=== PATIENT | male | born 1935 | race Caucasian/White ===

== ENCOUNTER 2021-06-23 08:19 | Outpatient (CLI) | payer MEDICARE ==
[2021-06-23] MEDS ORDERED: Magnevist 469MG/ML 20 ML VIAL ONE (09:26)
== END 2021-06-23 08:20 | disposition home or self-care (01) ==
LOC: CSHMRI 08:19
PROVIDERS: ATTEND Internal Medicine Gastroenterology
DX: K59.00 Constipation, unspecified (principal); K86.2 Cyst of pancreas; K76.89 Other specified diseases of liver; Z12.11 Encounter for screening for malignant neoplasm of colon
CPT/HCPCS: 74183

== ENCOUNTER 2023-09-04 10:05 | Outpatient (CLI) | payer OTHER ==
[2023-09-04 13:26] LABS: Hematocrit 38.9 % (38.8-50.0); Hemoglobin 13.2 g/dL (13.5-17.5); Mean Corpuscular HGB CONC 33.9 g/dL (32.0-36.0); Mean Corpuscular Volume 91.3 fL (81.2-95.1); Mean Platelet Volume 10.9 fL (7.4-10.4); Platelet Count 189 10x3/uL (150-450); RBC Distribution Width 13.9 % (11.5-14.5); Red Blood Cell (RBC) Count 4.26 10x6/uL (4.32-5.72); White Blood Cell (WBC) Count 4.7 10x3/uL (3.5-10.5)
[2023-09-04 14:18] LABS: Anion Gap 14 mmol/L (10-20); BUN (Urea Nitrogen) 19 mg/dL (8.4-25.7); Calc. Creatinine Clearance 0 mL/min (70-130); Calcium 9.8 mg/dL (7.8-10.44); Carbon Dioxide 24 mmol/L (23-31); Chloride 106 mmol/L (98-107); Estimated GFR 53; Glucose 103 mg/dL (83-110); Potassium 4.6 mmol/L (3.5-5.1); Sodium 139 mmol/L (136-145)
== END 2023-09-04 10:06 | disposition home or self-care (01) ==
LOC: CSHLAB 10:05
PROVIDERS: ATTEND Surgery
DX: Z01.818 Encounter for other preprocedural examination (principal); K40.20 Bilateral inguinal hernia, without obstruction or gangrene, not specified as recurrent
CPT/HCPCS: 80048; 85027; 93005; 93010

== ENCOUNTER 2023-09-07 05:39 | Day surgery (SDC) | payer OTHER ==
[2023-09-04 10:28] VITALS: BMI 28.7
[2023-09-07] MEDS ORDERED: Bupivacaine PF 0.5% 30 ML VIAL ONE (06:28)
[2023-09-07] MEDS ORDERED: EPINEPHrine 1 MG/ML VIAL ONE (06:28)
[2023-09-07] MEDS ORDERED: CEFAZOLIN 2 GM VIAL ONE (07:11)
[2023-09-07] MEDS ORDERED: Lidocaine 2% PF 5 ML VIAL ONE (07:15)
[2023-09-07] MEDS ORDERED: Lidocaine 4% PF 5 ML AMP ONE (07:16)
[2023-09-07] MEDS ORDERED: PROPOFOL 20 ML ONE (07:17)
[2023-09-07] MEDS ORDERED: fentaNYL 50 mcg/mL 1 mL Vial ONE ×3 (07:17→08:41)
[2023-09-07] MEDS ORDERED: Rocuronium Bromide 10 MG/ML (10ML VIAL) ONE (07:19)
[2023-09-07] MEDS ORDERED: ePHEDrine Sulfate 50 MG/10 ML VIAL ONE (07:19)
[2023-09-07] MEDS ORDERED: SUGAMMADEX SODIUM 200 MG/2 ML VIAL ONE (09:03)
[2023-09-07] MEDS ORDERED: HYDROcodone/Acetaminophen 5/325 mg Tablet PO PRN (09:28)
== END 2023-09-07 10:55 | disposition home or self-care (01) ==
LOC: CSHSDC 05:39
PROVIDERS: ATTEND Surgery
PROC: 0YUA4JZ Supplement Bilateral Inguinal Region with Synthetic Substitute, Percutaneous Endoscopic Approach (ICD-10-PCS; principal; 2023-09-07)
DX: K40.20 Bilateral inguinal hernia, without obstruction or gangrene, not specified as recurrent (principal); D17.6 Benign lipomatous neoplasm of spermatic cord; I10 Essential (primary) hypertension; N40.0 Benign prostatic hyperplasia without lower urinary tract symptoms; M19.90 Unspecified osteoarthritis, unspecified site; Z79.82 Long term (current) use of aspirin; Z87.891 Personal history of nicotine dependence; Z79.899 Other long term (current) drug therapy
CPT/HCPCS: 49650; C1781 ×2; J0171; J0665; J2001; J2704; J3010